=== PATIENT | female | born 1955 | race Caucasian/White ===

== ENCOUNTER 2017-11-28 15:27 | Outpatient (CLI) | END 2017-11-28 15:28 | disposition home or self-care (01) | LOC: LAB 15:27 | PROVIDERS: ATTEND Family Medicine | DX: I10 Essential (primary) hypertension (principal); R60.9 Edema, unspecified; R05 Cough; K14.0 Glossitis; E03.9 Hypothyroidism, unspecified; Z87.2 Personal history of diseases of the skin and subcutaneous tissue | CPT/HCPCS: 36415; 80053; 84443; 85025 ==

== ENCOUNTER 2017-12-01 10:42 | Outpatient (CLI) ==
--- NOTE | 2017-12-01 12:33 | DI ---
Exam: Chest two-view HISTORY: Cough. FINDINGS: Two views of the chest demonstrate moderately expanded lungs with no evidence of pneumonia or edema. Calcified granulomata are noted. The cardiac silhouette is at the upper limit of normal size. The pulmonary vasculature is not congested. Partially calcified breast prostheses are noted. T here are surgical clips in the upper abdomen. The skeletal structures are intact. IMPRESSION: No acute cardiopulmonary disease.
== END 2017-12-01 10:43 | disposition home or self-care (01) ==
LOC: RAD 10:42
PROVIDERS: ATTEND Family Medicine
DX: R05 Cough (principal)

== ENCOUNTER 2018-01-21 12:15 | Outpatient (CLI) | payer OTHER | END 2018-01-21 12:16 | disposition home or self-care (01) | LOC: FCC-LAB 12:15 | PROVIDERS: ATTEND Family Medicine | DX: K13.21 Leukoplakia of oral mucosa, including tongue (principal); R68.2 Dry mouth, unspecified | CPT/HCPCS: 36415; 86038 ==